=== PATIENT | female | born 1985 | race Caucasian/White ===

== ENCOUNTER 2022-08-29 08:42 | Outpatient (CLI) | payer OTHER | END 2022-08-29 10:00 | disposition home or self-care (01) | LOC: NST 08:42 | PROVIDERS: ATTEND Obstetrics & Gynecology | DX: Z34.83 Encounter for supervision of other normal pregnancy, third trimester (principal) ==

== ENCOUNTER 2022-08-29 12:15 | Inpatient (IN) | payer OTHER | END 2022-09-07 13:09 | disposition home or self-care (01) | DRG 788 | LOC: OB/GYN 09-04 13:29 → LDR 09-04 13:29 → O/R 09-04 17:27 → OB/GYN 09-04 22:29 | PROVIDERS: ADMIT Obstetrics & Gynecology; ATTEND Obstetrics & Gynecology | PROC: 4A1HXCZ Monitoring of Products of Conception, Cardiac Rate, External Approach (ICD-10-PCS; 2022-09-04) | PROC: 10D00Z1 Extraction of Products of Conception, Low, Open Approach (ICD-10-PCS; principal; 2022-09-04 17:00) | DX: O14.04 Mild to moderate pre-eclampsia, complicating childbirth (principal); Z3A.37 37 weeks gestation of pregnancy; Z37.0 Single live birth; Z20.822 Contact with and (suspected) exposure to COVID-19 ==